=== PATIENT | male | born 1970 | race Caucasian/White ===

== ENCOUNTER 2016-10-19 16:32 | Inpatient (IN) | payer OTHER ==
[2016-10-19 17:33] VITALS: BMI 24.8
--- NOTE | 2016-10-19 19:14 | HP ---
CIWA Score - CIWA Score Nausea/Vomitin Muscle Tremors: 3 Anxiety: 2 Agitation: 3 Paroxysmal Sweats: 2 Orientation: 0-Oriented Tacttile Disturbances: 2-Mild Itch/Numbness/Burn Auditory Disturbances: 2-Mild Harshness/Frighten Visual Disturbances: 2-Mild Sensitivity Headache: 2-Mild CIWA-Ar Total Score: 21 Admission ROS [facility] - HPI Chief Complaint: i need help to stop drinking alcohol,cocaine,heroin abused,on mmtp 50 mgs/day, last medicated today Allergies/Adverse Reactions: Allergies Allergy/AdvReac Type Severity Reaction Status Date / Time No Known Allergies Allergy Verified 10/19/16 19:12 History of Present Illness: this 46 years old male with alcohol,cocaine dependence,heroin abused,mmtp 50 mgs /day,last medicated today, seeking detox,last treatment 2006 [facility] anxiety,depression,insomnia hypertension non compliance nicotine dependence previous admissions before longest period of sobriety 2 years Exam Limitations: No Limitations - Ebola screening Have you traveled outside of the country in the last 21 days: No Have you had contact with anyone from an Ebola affected area: No Have you been sick,other than usual withdrawal symptoms: No Do you have a fever: No - Review of Systems Constitutional: Chills, Diaphoresis, Loss of Appetite, Malaise, Night Sweats, Changes in sleep, Weakness, Unintentional Wgt. Loss EENT: reports: Tearing, Nose Congestion Respiratory: reports: No Symptoms reported Cardiac: reports: No Symptoms Reported GI: reports: Diarrhea, Nausea, Vomiting : reports: No Symptoms Reported Musculoskeletal: reports: Back Pain, Joint Pain, Muscle Pain, Joint Stiffness Integumentary: reports: Dryness Neuro: reports: Headache, Tremors Endocrine: reports: No Symptoms Reported Hematology: reports: No Symptoms Reported Psychiatric: reports: Anxious (insomnia), Depressed Patient History - Patient Medical History Hx Anemia: No Hx Asthma: Yes (on albuterol inhaler) Hx Chronic Obstructive Pulmonary Disease (COPD): No Hx Cancer: No Hx Cardiac Disorders: No Hx Congestive Heart Failure: No Hx Hypertension: Yes (non compliance on hydrochlorothiazide 25 mgs po daily) Hx Hypercholesterolemia: No Hx Pacemaker: No HX Cerebrovascular Accident: No Hx Seizures: Yes (last 09/26) Hx Dementia: No Hx Diabetes: No Hx Gastrointestinal Disorders: No Hx Liver Disease: No Hx Genitourinary Disorders: No Hx Sexually Transmitted Disorders: No Hx Renal Disease (ESRD): No Hx Thyroid Disease: No Hx Human Immunodeficiency Virus (HIV): No (last 09/26 negative) Hx Hepatitis C: No Hx Depression: Yes (anxiety) Hx Suicide Attempt: Yes (jump from secod floor) Hx Bipolar Disorder: No Hx Schizophrenia: No Other Medical History: in somnia,no suiicidal,no homicidal - Patient Surgical History Past Surgical History: No - PPD History Previous Implant?: Yes Documented Results: Negative w/o proof Implanted On Prior R Admission?: No PPD to be Administered?: Yes - Smoking Cessation Smoking history: Current every day smoker Have you smoked in the past 12 months: Yes Aproximately how many cigarettes per day: 40 Cigars Per Day: 0 Hx Chewing Tobacco Use: No Initiated information on smoking cessation: Yes 'Breaking Loose' booklet given: 10/19/16 - Substance & Tx. History Hx Alcohol Use: Yes Hx Substance Use: Yes Substance Use Type: Alcohol, Cocaine, Heroin - Substances Abused Alcohol Route: Oral Frequency: Daily Amount used: 2pints of bacardi/6 packe of 32 ozs of beer Age of first use: 17 Date of Last Use: 10/18/16 Cocaine Route: Inhalation Frequency: 1-2 times per week Amount used: 200$ Age of first use: 11 Date of Last Use: 10/17/16 Heroin Route: Inhalation Frequency: Daily Amount used: 20 bags Age of first use: 15 Date of Last Use: 10/18/16 Family Disease History - Family Disease History Family Disease History: Other: Father (alcohol,), Mother (alcohol, ) Admission Physical Exam [facility] - Vital Signs Vital Signs: Vital Signs - 24 hr 10/19/16 17:16 Temperature 97.2 F L Pulse Rate 81 Respiratory 20 Rate Blood Pressure 126/79 - Physical General Appearance: Yes: Moderate Distress, Tremorous, Irritable, Sweating, Anxious HEENTM: Yes: Normal ENT Inspection, DWAYNE, Pharynx Normal Respiratory: Yes: Lungs Clear, Normal Breath Sounds, No Respiratory Distress Neck: Yes: Supple, Trachea in good position Breast: Yes: Within Normal Limits Cardiology: Yes: Within Normal Limits, Regular Rhythm, Regular Rate, S1, S2 Abdominal: Yes: Within Normal Limits, Normal Bowel Sounds, Non Tender, Flat, Soft Genitourinary: Yes: Within Normal Limits Back: Yes: Normal Inspection, Muscle Spasm Musculoskeletal: Yes: Back pain, Joint Stiffness, Muscle Pain Extremities: Yes: Tremors Neurological: Yes: registered radiologic technologist II-XII NML intact, Fully Oriented, Alert, Motor Strength 5/5 Integumentary: Yes: Dry Lymphatic: Yes: Within Normal Limits - Diagnostic (1) Alcohol dependence with uncomplicated withdrawal Current Visit: Yes Status: Acute (2) Cocaine dependence Current Visit: Yes Status: Acute (3) Heroin dependence Current Visit: Yes Status: Acute (4) Methadone maintenance therapy patient Current Visit: Yes Status: Acute (5) Weight loss Current Visit: Yes Status: Acute (6) Asthma Current Visit: Yes Status: Acute (7) Anxiety and depression Current Visit: Yes Status: Acute (8) Insomnia Current Visit: Yes Status: Acute Cleared for Admission [facility] - Detox or Rehab [facility] Level of Care: Medically Managed Detox Regimen/Protocol: Librium [facility] Breath Alcohol Content Breath Alcohol Content: 0 Urine Drug Screen - Results Drug Screen Negative: No Urine Drug Screen Results: OPI-Opiates, MTD-Methadone
[2016-10-19] MEDS ORDERED: ACETAMINOPHEN 325 MG TABLET (FP) PO PRN (19:38)
[2016-10-19] MEDS ORDERED: MENTHOL/PHENOL 1 EACH UD MM PRN (19:38)
[2016-10-19] MEDS ORDERED: MAGNESIUM HYDROX 2400MG/30ML ORAL SUSPENSION 30 ML CUP PO PRN (19:38)
[2016-10-19] MEDS ORDERED: MAGNESIUM CITRATE 300 ML BOTTLE PO PRN (19:38)
[2016-10-19] MEDS ORDERED: P-EPHED 60MG/TRIPROLIDI 2.5MG TABLET PO PRN (19:38)
[2016-10-19] MEDS ORDERED: NICOTINE POLACRILEX 2 MG GUM BC PRN (19:38)
[2016-10-19] MEDS ORDERED: diphenhydrAMINE HCL 50 MG CAPSULE PO PRN (19:38)
[2016-10-19] MEDS ORDERED: MAG HYDROX/AL HYDROX/SIMETH 30 ML UNIT-DOSE CUP PO PRN (19:38)
[2016-10-19] MEDS ORDERED: chlordiazePOXIDE HCL 25 MG CAPSULE PO PRN (19:38)
[2016-10-19] MEDS ORDERED: LOPERAMIDE HCL 2 MG CAPSULE PO PRN (19:38)
[2016-10-19] MEDS ORDERED: hydrOXYzine PAMOATE 50 MG CAPSULE (FP) PO PRN (19:38)
[2016-10-19] MEDS ORDERED: guaiFENesin/D-METHORPHAN HB 10 ML UNIT-DOSE CUPS PO PRN (19:38)
[2016-10-19] MEDS: chlordiazePOXIDE HCL 25 MG CAPSULE PO SCH (22:28)
[2016-10-19] MEDS: THIAMINE HCL 100 MG TABLET (FP) PO SCH (22:28)
[2016-10-19] MEDS: NICOTINE 21 MG/24 HOURS TOPICAL PATCH TD SCH (22:29)
[2016-10-20] MEDS: chlordiazePOXIDE HCL 25 MG CAPSULE PO SCH ×4 (05:17→22:12)
[2016-10-20] MEDS ORDERED: METHADONE HCL 10 MG TABLET PO ONE (09:50)
[2016-10-20] MEDS ORDERED: METHADONE 40 MG, METHADONE 10 MG PO ONE (10:05)
[2016-10-20 10:06] LABS: MCH 30.1 pg (25.7-33.7); MCHC 32.5 g/dl (32.0-35.9); MEAN CELL VOLUME 92.6 fl (80-96); MEAN PLT VOLUME 10.2 fl (7.5-11.1); PLATELET COUNT 161 K/MM3 (134-434); RDW 14.7 % (11.9-15.9); WHITE BLOOD COUNT 8.7 K/mm3 (4.0-10.0)
[2016-10-20] MEDS ORDERED: METHADONE HCL 10 MG TABLET ONE (10:17)
[2016-10-20] MEDS ORDERED: METHADONE HCL 40 MG DISPERSABLE TABLET ONE (10:17)
[2016-10-20] MEDS: PRENATAL VITAMINS W/ FOLIC ACID TABLET (FP) PO SCH (10:21)
[2016-10-20] MEDS: NICOTINE 21 MG/24 HOURS TOPICAL PATCH TD SCH (10:22)
--- NOTE | 2016-10-20 10:24 | PN ---
S CIWA - CIWA Score Nausea/Vomitin-No Nausea/No Vomiting Muscle Tremors: 4-Moderate,w/Arms Extend Anxiety: 3 Agitation: 4-Moderately Restless Paroxysmal Sweats: 3 Orientation: 0-Oriented Tacttile Disturbances: 0-None Auditory Disturbances: 0-None Visual Disturbances: 0-None Headache: 1-Very Mild CIWA-Ar Total Score: 15 BHS Progress Note (SOAP) Subjective: sweats agitation anxiety interrupted sleep Objective: 10/20/16 10:23 Vital Signs Temperature 97.5 F L 10/20/16 10:21 Pulse Rate 77 10/20/16 10:21 Respiratory Rate 18 10/20/16 10:21 Blood Pressure 136/92 10/20/16 10:21 O2 Sat by Pulse Oximetry (%) Laboratory Tests 10/20/16 10/20/16 07:00 07:00 WBC 8.7 RBC 4.47 Hgb 13.4 Hct 41.4 MCV 92.6 MCH 30.1 MCHC 32.5 RDW 14.7 Plt Count 161 MPV 10.2 Sodium 142 Potassium 4.4 Chloride 109 H labs pending awake/alert ambulating no acute distress Assessment: 10/20/16 10:23 withdrawal sx Plan: continue detox increase fluids labs pending
[2016-10-20 10:31] LABS: ALBUMIN 3.3 g/dl (3.4-5.0); ALK PHOS 71 U/L (45-117); ANION GAP 4 (8-16); BILIRUBIN,TOTAL 0.2 mg/dL (0.2-1.0); CO2 29 mmol/L (21-32); CREATININE 0.9 mg/dL (0.7-1.3); GLUCOSE,RANDOM 94 mg/dL (74-106); SGOT/AST 9 U/L (15-37); SGPT/ALT 17 U/L (12-78); TOT PROT 6.3 g/dl (6.4-8.2)
--- NOTE | 2016-10-20 10:43 | CONSULT ---
[facility] Psychiatric Consult - Data Date of interview: 10/20/16 Admission source: [facility] Identifying data: This is 46 years old male with psychiatric hospitalization history intoxicated with: Heroin,. Alcohol, Cociane and Nicotine Substance Abuse History: - Smoking Cessation. Smoking history: Current every day smoker. Have you smoked in the past 12 months: Yes. Aproximately how many cigarettes per day: 40. Cigars Per Day: 0. Hx Chewing Tobacco Use: No. Initiated information on smoking cessation: Yes. 'Breaking Loose' booklet given : 10/19/16. - Substance & Tx. History. Hx Alcohol Use: Yes. Hx Substance Use : Yes. Substance Use Type: Alcohol, Cocaine, Heroin. - Substances Abused. Alcohol. Route: Oral. Frequency: Daily. Amount used: 2pints of bacardi/6 packe of 32 ozs of beer. Age of first use: 17. Date of Last Use: 10/18/16. * * Cocaine. Route: Inhalation. Frequency: 1-2 times per week. Amount used: 200 $. Age of first use: 11. Date of Last Use: 10/17/16. Heroin. Route: Inhalation. Frequency: Daily. Amount used: 20 bags. Age of first use: 15. Date of Last Use: 10/18/16 Medical History: Asthma, Weight loss hidtory, MMTP 50mg/day Psychiatric History: Patient reports history of anxiety and depression, reports psychiatric admission on about 10 years ago for safety, reports insomnia, reports taking prior to admission: Ambien 10mg po qhs Physical/Sexual Abuse/Trauma History: Denies Additional Comment: Ambien 10mg po qhs prn for insomnia Mental Status Exam - Mental Status Exam Alert and Oriented to: Person Cognitive Function: Fair Patient Appearance: Unkempt Mood: Sad Affect: Flat Patient Behavior: Sedated Speech Pattern: Delayed Voice Loudness: Mildly Soft/Quiet Thought Process: Circumstantial Thought Disorder: Being Controlled Hallucinations: Denies Suicidal Ideation: Denies Homicidal Ideation: Denies Insight/Judgement: Fair Sleep: Difficulty falling asleep Appetite: Weight loss Muscle strength/Tone: Mild Hypotonicity Gait/Station: Shuffling Additional Comments: Ambien 10mg po qhs prn for insomnia Psychiatric Findings - Problem List ([place] 1, 2,3) (1) Alcohol dependence with uncomplicated withdrawal Current Visit: Yes Status: Acute (2) Anxiety and depression Current Visit: Yes Status: Acute (3) Cocaine dependence Current Visit: Yes Status: Acute (4) Heroin dependence Current Visit: Yes Status: Acute (5) Methadone maintenance therapy patient Current Visit: Yes Status: Acute (6) Drug-induced mood disorder Current Visit: Yes Status: Acute - Initial Treatment Plan Initial Treatment Plan: Ambien 10mg po qhs prn for insomnia
--- NOTE | 2016-10-20 15:37 | EKG ---
Test Reason : Blood Pressure : / mmHG Vent. Rate : 052 BPM Atrial Rate : 052 BPM P-R Int : 160 ms QRS Dur : 098 ms QT Int : 416 ms P-R-T Axes : 027 049 041 degrees QTc Int : 386 ms SINUS BRADYCARDIA VOLTAGE CRITERIA FOR LEFT VENTRICULAR HYPERTROPHY ABNORMAL ECG NO PREVIOUS ECGS AVAILABLE Confirmed by ANDRAE OLMOS MD ([id number]) on 10/20/2016 3:37:08 PM Referred By: Confirmed By:ANDRAE OLMOS MD
[2016-10-20] MEDS: IBUPROFEN 400 MG TABLET (FP) PO PRN (22:11)
[2016-10-20] MEDS: THIAMINE HCL 100 MG TABLET (FP) PO SCH (22:12)
[2016-10-20] MEDS: ZOLPIDEM TARTRATE 10 MG TABLET (PARK CARE ONLY) PO PRN (22:12)
[2016-10-21] MEDS ORDERED: METHADONE HCL 40 MG DISPERSABLE TABLET ONE (04:27)
[2016-10-21] MEDS ORDERED: METHADONE HCL 10 MG TABLET ONE (04:28)
[2016-10-21] MEDS ORDERED: METHADONE HCL 40 MG DISPERSABLE TABLET PO SCH (06:00)
[2016-10-21] MEDS: chlordiazePOXIDE HCL 25 MG CAPSULE PO SCH ×3 (06:12→17:44)
[2016-10-21] MEDS: METHADONE 40 MG, METHADONE 10 MG PO SCH (06:12)
--- NOTE | 2016-10-21 09:50 | PN ---
[facility] CIWA - CIWA Score Nausea/Vomitin-No Nausea/No Vomiting Muscle Tremors: 3 Anxiety: 3 Agitation: 3 Paroxysmal Sweats: 3 Orientation: 0-Oriented Tacttile Disturbances: 0-None Auditory Disturbances: 0-None Visual Disturbances: 0-None Headache: 0-None Present CIWA-Ar Total Score: 12 S Progress Note (SOAP) Subjective: sweats interrupted sleep agitation restless Objective: 10/21/16 09:50 Vital Signs Temperature 97.5 F 10/21/16 06:29 Pulse Rate 101 10/21/16 06:29 Respiratory Rate 18 10/21/16 06:29 Blood Pressure 153/87 10/21/16 06:29 O2 Sat by Pulse Oximetry (%) Laboratory Tests 10/20/16 10/20/16 10/20/16 07:00 07:00 07:00 WBC 8.7 RBC 4.47 Hgb 13.4 Hct 41.4 MCV 92.6 MCH 30.1 MCHC 32.5 RDW 14.7 Plt Count 161 MPV 10.2 Sodium 142 Potassium 4.4 Chloride 109 H Carbon Dioxide 29 Anion Gap 4 L BUN 15 Creatinine 0.9 Creat Clearance w eGFR > 60 Random Glucose 94 Calcium 9.0 Total Bilirubin 0.2 AST 9 L ALT 17 Alkaline Phosphatase 71 Total Protein 6.3 L Albumin 3.3 L RPR Titer Nonreactive u/a ordered awake/alert ambulating no acute distress Assessment: 10/21/16 09:51 mild withdrawal sx Plan: continue detox increase fluids f/u ua
[2016-10-21] MEDS: PRENATAL VITAMINS W/ FOLIC ACID TABLET (FP) PO SCH (10:12)
[2016-10-21] MEDS: NICOTINE 21 MG/24 HOURS TOPICAL PATCH TD SCH (10:12)
[2016-10-21 16:10] LABS: URINE APPEARANCE CLEAR; URINE BILIRUBIN NEGATIVE (NEGATIVE); URINE BLOOD NEGATIVE (NEGATIVE); URINE COLOR LTYELLOW; URINE GLUCOSE (UA) NEGATIVE (NEGATIVE); URINE KETONE NEGATIVE (NEGATIVE); URINE LEUK ESTERASE NEGATIVE (NEGATIVE); URINE NITRITE NEGATIVE (NEGATIVE); URINE PROTEIN NEGATIVE (NEGATIVE); URINE UROBILINOGEN NEGATIVE mg/dL (0.2-1.0)
[2016-10-21] MEDS: THIAMINE HCL 100 MG TABLET (FP) PO SCH (22:11)
[2016-10-21] MEDS: ZOLPIDEM TARTRATE 10 MG TABLET (PARK CARE ONLY) PO PRN (22:11)
[2016-10-21] MEDS: chlordiazePOXIDE 5 MG CAPSULE PO SCH (22:11)
[2016-10-22] MEDS ORDERED: METHADONE HCL 10 MG TABLET ONE (04:46)
[2016-10-22] MEDS ORDERED: METHADONE HCL 40 MG DISPERSABLE TABLET ONE (04:46)
[2016-10-22] MEDS: chlordiazePOXIDE 5 MG CAPSULE PO SCH ×3 (05:11→17:48)
[2016-10-22] MEDS: METHADONE 40 MG, METHADONE 10 MG PO SCH (05:12)
[2016-10-22] MEDS: NICOTINE 21 MG/24 HOURS TOPICAL PATCH TD SCH (10:03)
[2016-10-22] MEDS: PRENATAL VITAMINS W/ FOLIC ACID TABLET (FP) PO SCH (10:03)
--- NOTE | 2016-10-22 10:12 | PN ---
[facility] Progress Note (SOAP) Subjective: Sweating,interrupted sleep,restless Objective: 10/22/16 10:11 Vital Signs - 8 hr 10/22/16 10/22/16 10/22/16 03:30 06:00 10:00 Temperature 97.2 F L 97.5 F L Pulse Rate 65 77 Respiratory 18 18 18 Rate Blood Pressure 133/89 145/96 Laboratory Last Values WBC 8.7 K/mm3 (4.0-10.0) 10/20/16 07:00 RBC 4.47 M/mm3 (4.00-5.60) 10/20/16 07:00 Hgb 13.4 GM/dL (11.7-16.9) 10/20/16 07:00 Hct 41.4 % (35.4-49) 10/20/16 07:00 MCV 92.6 fl (80-96) 10/20/16 07:00 MCH 30.1 pg (25.7-33.7) 10/20/16 07:00 MCHC 32.5 g/dl (32.0-35.9) 10/20/16 07:00 RDW 14.7 % (11.9-15.9) 10/20/16 07:00 Plt Count 161 K/MM3 (134-434) 10/20/16 07:00 MPV 10.2 fl (7.5-11.1) 10/20/16 07:00 Sodium 142 mmol/L (136-145) 10/20/16 07:00 Potassium 4.4 mmol/L (3.5-5.1) 10/20/16 07:00 Chloride 109 mmol/L (98-107) H 10/20/16 07:00 Carbon Dioxide 29 mmol/L (21-32) 10/20/16 07:00 Anion Gap 4 (8-16) L 10/20/16 07:00 BUN 15 mg/dL (7-18) 10/20/16 07:00 Creatinine 0.9 mg/dL (0.7-1.3) 10/20/16 07:00 Creat Clearance w eGFR > 60 (>60) 10/20/16 07:00 Random Glucose 94 mg/dL (74-106) 10/20/16 07:00 Calcium 9.0 mg/dL (8.5-10.1) 10/20/16 07:00 Total Bilirubin 0.2 mg/dL (0.2-1.0) 10/20/16 07:00 AST 9 U/L (15-37) L 10/20/16 07:00 ALT 17 U/L (12-78) 10/20/16 07:00 Alkaline Phosphatase 71 U/L (45-117) 10/20/16 07:00 Total Protein 6.3 g/dl (6.4-8.2) L 10/20/16 07:00 Albumin 3.3 g/dl (3.4-5.0) L 10/20/16 07:00 Urine Color Ltyellow 10/21/16 13:05 Urine Appearance Clear 10/21/16 13:05 Urine pH 6.0 (5.0-8.0) 10/21/16 13:05 Ur Specific [place] <= 1.005 (1.005-1.025) 10/21/16 13:05 Urine Protein Negative (NEGATIVE) 10/21/16 13:05 Urine Glucose (UA) Negative (NEGATIVE) 10/21/16 13:05 Urine Ketones Negative (NEGATIVE) 10/21/16 13:05 Urine Blood Negative (NEGATIVE) 10/21/16 13:05 Urine Nitrite Negative (NEGATIVE) 10/21/16 13:05 Urine Bilirubin Negative (NEGATIVE) 10/21/16 13:05 Urine Urobilinogen Negative mg/dL (0.2-1.0) 10/21/16 13:05 Ur Leukocyte Esterase Negative (NEGATIVE) 10/21/16 13:05 RPR Titer Nonreactive (NONREACTIVE) 10/20/16 07:00 labs noted Assessment: 10/22/16 10:11 Withdrawal sx. Plan: Continue detox
[2016-10-22] MEDS: IBUPROFEN 400 MG TABLET (FP) PO PRN (17:54)
[2016-10-22] MEDS: chlordiazePOXIDE HCL 10 MG CAPSULE PO SCH (22:15)
[2016-10-22] MEDS: ZOLPIDEM TARTRATE 10 MG TABLET (PARK CARE ONLY) PO PRN (22:15)
[2016-10-22] MEDS: THIAMINE HCL 100 MG TABLET (FP) PO SCH (22:15)
[2016-10-23] MEDS ORDERED: METHADONE HCL 10 MG TABLET ONE (04:52)
[2016-10-23] MEDS ORDERED: METHADONE HCL 40 MG DISPERSABLE TABLET ONE (04:52)
[2016-10-23] MEDS: chlordiazePOXIDE HCL 10 MG CAPSULE PO SCH ×2 (06:05→12:23)
[2016-10-23] MEDS: METHADONE 40 MG, METHADONE 10 MG PO SCH (06:05)
[2016-10-23 06:43] VITALS: PULSE 71
[2016-10-23] MEDS: PRENATAL VITAMINS W/ FOLIC ACID TABLET (FP) PO SCH (09:35)
--- NOTE | 2016-10-23 09:38 | DS ---
[facility] Detox Discharge Summary Admission Date: 10/19/16 Discharge Date: 10/23/16 - History Present History: Alcohol Dependence, Cocaine Dependence, MMTP Pertinent Past History: Asthma - Physical Exam Results Vital Signs: Vital Signs Temperature 96.1 F L 10/23/16 06:00 Pulse Rate 71 10/23/16 06:00 Respiratory Rate 18 10/23/16 06:00 Blood Pressure 139/86 10/23/16 06:00 O2 Sat by Pulse Oximetry (%) Pertinent Admission Physical Exam Findings: Withdrawal sx. Laboratory Last Values WBC 8.7 K/mm3 (4.0-10.0) 10/20/16 07:00 RBC 4.47 M/mm3 (4.00-5.60) 10/20/16 07:00 Hgb 13.4 GM/dL (11.7-16.9) 10/20/16 07:00 Hct 41.4 % (35.4-49) 10/20/16 07:00 MCV 92.6 fl (80-96) 10/20/16 07:00 MCH 30.1 pg (25.7-33.7) 10/20/16 07:00 MCHC 32.5 g/dl (32.0-35.9) 10/20/16 07:00 RDW 14.7 % (11.9-15.9) 10/20/16 07:00 Plt Count 161 K/MM3 (134-434) 10/20/16 07:00 MPV 10.2 fl (7.5-11.1) 10/20/16 07:00 Sodium 142 mmol/L (136-145) 10/20/16 07:00 Potassium 4.4 mmol/L (3.5-5.1) 10/20/16 07:00 Chloride 109 mmol/L (98-107) H 10/20/16 07:00 Carbon Dioxide 29 mmol/L (21-32) 10/20/16 07:00 Anion Gap 4 (8-16) L 10/20/16 07:00 BUN 15 mg/dL (7-18) 10/20/16 07:00 Creatinine 0.9 mg/dL (0.7-1.3) 10/20/16 07:00 Creat Clearance w eGFR > 60 (>60) 10/20/16 07:00 Random Glucose 94 mg/dL (74-106) 10/20/16 07:00 Calcium 9.0 mg/dL (8.5-10.1) 10/20/16 07:00 Total Bilirubin 0.2 mg/dL (0.2-1.0) 10/20/16 07:00 AST 9 U/L (15-37) L 10/20/16 07:00 ALT 17 U/L (12-78) 10/20/16 07:00 Alkaline Phosphatase 71 U/L (45-117) 10/20/16 07:00 Total Protein 6.3 g/dl (6.4-8.2) L 10/20/16 07:00 Albumin 3.3 g/dl (3.4-5.0) L 10/20/16 07:00 Urine Color Ltyellow 10/21/16 13:05 Urine Appearance Clear 10/21/16 13:05 Urine pH 6.0 (5.0-8.0) 10/21/16 13:05 Ur Specific [place] <= 1.005 (1.005-1.025) 10/21/16 13:05 Urine Protein Negative (NEGATIVE) 10/21/16 13:05 Urine Glucose (UA) Negative (NEGATIVE) 10/21/16 13:05 Urine Ketones Negative (NEGATIVE) 10/21/16 13:05 Urine Blood Negative (NEGATIVE) 10/21/16 13:05 Urine Nitrite Negative (NEGATIVE) 10/21/16 13:05 Urine Bilirubin Negative (NEGATIVE) 10/21/16 13:05 Urine Urobilinogen Negative mg/dL (0.2-1.0) 10/21/16 13:05 Ur Leukocyte Esterase Negative (NEGATIVE) 10/21/16 13:05 RPR Titer Nonreactive (NONREACTIVE) 10/20/16 07:00 labs noted - Treatment Hospital Course: Detox Protocol Followed, Detoxed Safely, Responded well, Discharged Condition Good, Rehab Referral Accepted Patient has Accepted a Rehab Referral to: [facility] - Medication Discharge Medications: Ambulatory Orders Albuterol Sulfate Inhaler - [Ventolin Hfa Inhaler -] 1 puff IH Q6H PRN 10/19/16 Zolpidem Tartrate [Ambien] 10 mg PO HS 10/19/16 - Diagnosis (1) Alcohol dependence with uncomplicated withdrawal Current Visit: Yes Status: Acute (2) Cocaine dependence Current Visit: Yes Status: Acute Qualifiers: Substance use status: uncomplicated Qualified Code(s): F14.20 - Cocaine dependence, uncomplicated (3) Methadone maintenance therapy patient Current Visit: Yes Status: Acute (4) Asthma Current Visit: Yes Status: Acute Qualifiers: Asthma severity: mild intermittent Asthma complication type: uncomplicated Qualified Code(s): J45.20 - Mild intermittent asthma, uncomplicated - AMA Did Patient Leave Against Medical Advice: No
[2016-10-23 10:34] VITALS: BP 149/87; TEMP 97
[2016-10-23] MEDS: NICOTINE 21 MG/24 HOURS TOPICAL PATCH TD SCH (12:25)
== END 2016-10-23 14:01 | disposition other institution (70) | DRG 773 ==
LOC: YASAS 16:32 → Y6N 19:45
PROVIDERS: ADMIT Internal Medicine Addiction Medicine; ATTEND Internal Medicine Addiction Medicine
PROC: HZ2ZZZZ Detoxification Services for Substance Abuse Treatment (ICD-10-PCS; principal; 2016-10-19)
DX: F10.230 Alcohol dependence with withdrawal, uncomplicated (principal); F11.20 Opioid dependence, uncomplicated; F14.20 Cocaine dependence, uncomplicated; F17.210 Nicotine dependence, cigarettes, uncomplicated; F41.8 Other specified anxiety disorders; F19.24 Other psychoactive substance dependence with psychoactive substance-induced mood disorder; J45.20 Mild intermittent asthma, uncomplicated; G47.00 Insomnia, unspecified; I10 Essential (primary) hypertension; Z87.898 Personal history of other specified conditions; Z91.14 Patient's other noncompliance with medication regimen; Z86.69 Personal history of other diseases of the nervous system and sense organs; Z91.5 Personal history of self-harm
CPT/HCPCS: 36415; 80053; 81003; 85027; 86593; 93005; 93010

== ENCOUNTER 2016-10-23 14:18 | Inpatient (IN) | payer OTHER ==
[2016-10-23] MEDS ORDERED: MAGNESIUM HYDROX 2400MG/30ML ORAL SUSPENSION 30 ML CUP PO PRN (15:29)
[2016-10-23] MEDS ORDERED: guaiFENesin/D-METHORPHAN HB 10 ML UNIT-DOSE CUPS PO PRN (15:29)
[2016-10-23] MEDS ORDERED: NICOTINE POLACRILEX 2 MG GUM BUC PRN (15:29)
[2016-10-23] MEDS ORDERED: MENTHOL/PHENOL 1 EACH UD MM PRN (15:29)
[2016-10-23] MEDS ORDERED: LOPERAMIDE HCL 2 MG CAPSULE PO PRN (15:29)
[2016-10-23] MEDS ORDERED: IBUPROFEN 400 MG TABLET (FP) PO PRN (15:29)
[2016-10-23] MEDS ORDERED: MAG HYDROX/AL HYDROX/SIMETH 30 ML UNIT-DOSE CUP PO PRN (15:29)
[2016-10-23] MEDS ORDERED: MAGNESIUM CITRATE 300 ML BOTTLE PO PRN (15:29)
[2016-10-23] MEDS ORDERED: ACETAMINOPHEN 325 MG TABLET (FP) PO PRN (15:29)
[2016-10-23] MEDS ORDERED: P-EPHED 60MG/TRIPROLIDI 2.5MG TABLET PO PRN (15:29)
--- NOTE | 2016-10-23 15:33 | HP ---
[facility] Rehab Assess/Revision - Admission History Admitted to Rehab from: [facility] [place] Date of Admission to Rehab: 10/23/16 - Vital signs Vital Signs: Vital Signs Period Temp Pulse Resp BP Sys/Bobo Pulse Ox Last 24 Hr 98.5 F 81 18 142/44 - Findings Detox History & Physical reviewed: Yes Concur with findings: Yes
[2016-10-23] MEDS: THIAMINE HCL 100 MG TABLET (FP) PO SCH (21:19)
[2016-10-23] MEDS: diphenhydrAMINE HCL 50 MG CAPSULE PO PRN (21:19)
[2016-10-24] MEDS ORDERED: METHADONE HCL 10 MG TABLET ONE (06:00)
[2016-10-24] MEDS ORDERED: METHADONE HCL 10 MG TABLET PO SCH (06:00)
[2016-10-24] MEDS ORDERED: METHADONE HCL 40 MG DISPERSABLE TABLET ONE (06:00)
[2016-10-24] MEDS: METHADONE 40 MG, METHADONE 10 MG PO SCH (06:48)
--- NOTE | 2016-10-24 10:02 | HP ---
Psychiatrist Admission - Data Date of interview: 10/24/16 Admission source: [address] [place] [address] Identifying data: This is the first admisssion to [address] [place] [address] for this 46 yo H male,resides with his and stepson,unemployed, supported by PA. Medical History: Significant for degenerative disk disease. Psychiatric History: patient reports long and extensive psychiatric history started back in his teens.Reports depressed mood,anxiety.patient was dx with Bipolar disorder when he was admitted to inpatient unit while being in [facility].Patient was placed on psychotropic medications including Depakote and Seroquel (was discontinued due to side effects). patient reports no more psychiatric hospitalizations after that.He was under psychiatric care at.Patient is willing to restart Depakote 250 mg po bid. Physical/Sexual Abuse/Trauma History: not willing to discuss at present Vital Signs: Vital Signs - 24 hr 10/23/16 10/24/16 10/24/16 15:29 00:45 03:28 Temperature 98.5 F Pulse Rate 81 Respiratory 18 16 16 Rate Blood Pressure 142/44 10/24/16 07:02 Temperature 97.6 F Pulse Rate 59 L Respiratory 18 Rate Blood Pressure 154/95 Allergies/Adverse Reactions: Allergies Allergy/AdvReac Type Severity Reaction Status Date / Time No Known Allergies Allergy Verified 10/19/16 19:12 Date of last physical exam: 10/19/16 Concur with the findings of this exam: Yes - Substance Abuse/Tx History Hx Alcohol Use: Yes (reports drinking since 7 yo,6 bottles of beer daily) Hx Substance Use: Yes (heroin since 17 yo 1 g daily,cocaine/crack since 36 yo 1 g 6 times a week) Substance Use Type: Alcohol, Cocaine, Heroin Hx Substance Use Treatment: Yes (couple of different treatments) - Admission Criteria Previous failed treatment: Yes Poor recovery environment: Yes Comorbidities: Yes Lacks judgement: Yes Mental Status Exam - Mental Status Exam Alert and Oriented to: Time, Place, Person Cognitive Function: Grossly Intact Patient Appearance: Unkempt Mood: Sad, Anxious, Irritable Affect: Labile Patient Behavior: Cooperative Speech Pattern: Clear Voice Loudness: Normal Thought Process: Goal Oriented Thought Disorder: Not Present Hallucinations: Denies Suicidal Ideation: Denies Homicidal Ideation: Denies Insight/Judgement: Fair Sleep: Fair Appetite: Fair, Weight loss Muscle strength/Tone: Normal Gait/Station: Normal Psychiatric Findings - Problem List ([place] 1, 2,3) (1) Asthma Current Visit: Yes Status: Chronic Qualifiers: Asthma severity: mild intermittent Asthma complication type: uncomplicated Qualified Code(s): J45.20 - Mild intermittent asthma, uncomplicated (2) Cocaine dependence Current Visit: Yes Status: Chronic Qualifiers: Substance use status: uncomplicated Qualified Code(s): F14.20 - Cocaine dependence, uncomplicated (3) Drug-induced mood disorder Current Visit: Yes Status: Chronic (4) Heroin dependence Current Visit: Yes Status: Chronic (5) Methadone maintenance therapy patient Current Visit: Yes Status: Chronic (6) Degenerative disk disease Current Visit: Yes Status: Chronic (7) Alcohol dependence Current Visit: Yes Status: Chronic (8) Bipolar disorder Current Visit: Yes Status: Chronic - Initial Treatment Plan Initial Treatment Plan: Restart Depakote 250 mg po bid,Vistaril 50 mg po prn for anxiety,Belsompa 15 mg po hs prn for insomnia.Will monitor progress.
[2016-10-24] MEDS ORDERED: hydrOXYzine PAMOATE 50 MG CAPSULE (FP) PO PRN (10:12)
[2016-10-24] MEDS: NICOTINE 21 MG/24 HOURS TOPICAL PATCH TD SCH (10:22)
[2016-10-24] MEDS: PRENATAL VITAMINS W/ FOLIC ACID TABLET (FP) PO SCH (10:22)
[2016-10-24] MEDS: DIVALPROEX SODIUM 250 MG TABLET E.C. (FP) PO SCH ×2 (10:28→21:30)
[2016-10-24] MEDS ORDERED: IBUPROFEN 600 MG TABLET (FP) PO PRN (13:29)
[2016-10-24] MEDS: CYCLOBENZAPRINE HCL 10 MG TABLET (FP) PO SCH ×2 (14:24→21:30)
[2016-10-24] MEDS: LIDOCAINE 5% TOPICAL PATCH TP SCH (14:25)
[2016-10-24] MEDS: SUVOREXANT 5 MG TABLET PO PRN (21:30)
[2016-10-24] MEDS: THIAMINE HCL 100 MG TABLET (FP) PO SCH (21:30)
[2016-10-24] MEDS: LIDOCAINE PATCH REMOVAL MC SCH (22:06)
[2016-10-25] MEDS ORDERED: METHADONE HCL 10 MG TABLET ONE (03:42)
[2016-10-25] MEDS ORDERED: METHADONE HCL 40 MG DISPERSABLE TABLET ONE (03:43)
[2016-10-25] MEDS: METHADONE 40 MG, METHADONE 10 MG PO SCH (06:25)
[2016-10-25] MEDS: CYCLOBENZAPRINE HCL 10 MG TABLET (FP) PO SCH ×3 (06:26→21:35)
[2016-10-25] MEDS: DIVALPROEX SODIUM 250 MG TABLET E.C. (FP) PO SCH ×2 (10:18→21:35)
[2016-10-25] MEDS: PRENATAL VITAMINS W/ FOLIC ACID TABLET (FP) PO SCH (10:18)
[2016-10-25] MEDS: NICOTINE 21 MG/24 HOURS TOPICAL PATCH TD SCH (10:18)
[2016-10-25] MEDS: LIDOCAINE 5% TOPICAL PATCH TP SCH (10:19)
[2016-10-25] MEDS: THIAMINE HCL 100 MG TABLET (FP) PO SCH (21:35)
[2016-10-25] MEDS: LIDOCAINE PATCH REMOVAL MC SCH (21:35)
[2016-10-25] MEDS: diphenhydrAMINE HCL 50 MG CAPSULE PO PRN (21:38)
[2016-10-26] MEDS ORDERED: METHADONE HCL 10 MG TABLET ONE (03:18)
[2016-10-26] MEDS ORDERED: METHADONE HCL 40 MG DISPERSABLE TABLET ONE (03:19)
[2016-10-26] MEDS: METHADONE 40 MG, METHADONE 10 MG PO SCH (06:28)
[2016-10-26] MEDS: CYCLOBENZAPRINE HCL 10 MG TABLET (FP) PO SCH ×3 (06:28→21:30)
[2016-10-26] MEDS: PRENATAL VITAMINS W/ FOLIC ACID TABLET (FP) PO SCH (10:07)
[2016-10-26] MEDS: LIDOCAINE 5% TOPICAL PATCH TP SCH (10:08)
[2016-10-26] MEDS: NICOTINE 21 MG/24 HOURS TOPICAL PATCH TD SCH (10:08)
[2016-10-26] MEDS: DIVALPROEX SODIUM 250 MG TABLET E.C. (FP) PO SCH ×2 (10:08→21:30)
[2016-10-26] MEDS: diphenhydrAMINE HCL 50 MG CAPSULE PO PRN (21:31)
[2016-10-26] MEDS: THIAMINE HCL 100 MG TABLET (FP) PO SCH (21:32)
[2016-10-26] MEDS: LIDOCAINE PATCH REMOVAL MC SCH (23:13)
[2016-10-27] MEDS ORDERED: METHADONE HCL 10 MG TABLET ONE (03:15)
[2016-10-27] MEDS ORDERED: METHADONE HCL 40 MG DISPERSABLE TABLET ONE (03:15)
[2016-10-27] MEDS: METHADONE 40 MG, METHADONE 10 MG PO SCH (06:19)
[2016-10-27] MEDS: CYCLOBENZAPRINE HCL 10 MG TABLET (FP) PO SCH ×3 (06:19→21:39)
[2016-10-27] MEDS: PRENATAL VITAMINS W/ FOLIC ACID TABLET (FP) PO SCH (10:10)
[2016-10-27] MEDS: DIVALPROEX SODIUM 250 MG TABLET E.C. (FP) PO SCH ×2 (10:10→21:39)
[2016-10-27] MEDS: NICOTINE 21 MG/24 HOURS TOPICAL PATCH TD SCH (10:10)
[2016-10-27] MEDS: LIDOCAINE 5% TOPICAL PATCH TP SCH (10:11)
[2016-10-27] MEDS: THIAMINE HCL 100 MG TABLET (FP) PO SCH (21:39)
[2016-10-27] MEDS: SUVOREXANT 5 MG TABLET PO PRN (21:39)
[2016-10-27] MEDS: LIDOCAINE PATCH REMOVAL MC SCH (21:40)
[2016-10-28] MEDS ORDERED: METHADONE HCL 10 MG TABLET ONE (03:18)
[2016-10-28] MEDS ORDERED: METHADONE HCL 40 MG DISPERSABLE TABLET ONE (03:19)
[2016-10-28] MEDS: METHADONE 40 MG, METHADONE 10 MG PO SCH (06:21)
[2016-10-28] MEDS: NICOTINE 21 MG/24 HOURS TOPICAL PATCH TD SCH (09:54)
[2016-10-28] MEDS: DIVALPROEX SODIUM 250 MG TABLET E.C. (FP) PO SCH ×2 (09:55→21:26)
[2016-10-28] MEDS: PRENATAL VITAMINS W/ FOLIC ACID TABLET (FP) PO SCH (09:55)
[2016-10-28] MEDS: LIDOCAINE 5% TOPICAL PATCH TP SCH (09:55)
--- NOTE | 2016-10-28 11:51 | PN ---
[facility] Progress Note Note: hypertension history taking hydrochlorotiazide 12.5 mg po daily for 3 years , ordered
[2016-10-28] MEDS: HYDROCHLOROTHIAZIDE 12.5 MG CAPSULE (FP) PO SCH (12:38)
[2016-10-28] MEDS ORDERED: BUPIVACAINE HCL/PF 0.5% (5MG/ML) 10 ML VIAL ONE (16:10)
[2016-10-28] MEDS: LIDOCAINE PATCH REMOVAL MC SCH (21:26)
[2016-10-28] MEDS: THIAMINE HCL 100 MG TABLET (FP) PO SCH (21:26)
[2016-10-28] MEDS: diphenhydrAMINE HCL 50 MG CAPSULE PO PRN (21:26)
[2016-10-29] MEDS ORDERED: METHADONE HCL 40 MG DISPERSABLE TABLET ONE (03:24)
[2016-10-29] MEDS ORDERED: METHADONE HCL 10 MG TABLET ONE (03:24)
[2016-10-29] MEDS: METHADONE 40 MG, METHADONE 10 MG PO SCH (06:41)
[2016-10-29] MEDS: PRENATAL VITAMINS W/ FOLIC ACID TABLET (FP) PO SCH (09:58)
[2016-10-29] MEDS: HYDROCHLOROTHIAZIDE 12.5 MG CAPSULE (FP) PO SCH (09:58)
[2016-10-29] MEDS: DIVALPROEX SODIUM 250 MG TABLET E.C. (FP) PO SCH ×2 (09:58→21:08)
[2016-10-29] MEDS: NICOTINE 21 MG/24 HOURS TOPICAL PATCH TD SCH (09:59)
[2016-10-29] MEDS: LIDOCAINE 5% TOPICAL PATCH TP SCH (09:59)
[2016-10-29] MEDS: THIAMINE HCL 100 MG TABLET (FP) PO SCH (21:08)
[2016-10-29] MEDS: diphenhydrAMINE HCL 50 MG CAPSULE PO PRN (21:08)
[2016-10-29] MEDS: LIDOCAINE PATCH REMOVAL MC SCH (21:08)
[2016-10-30] MEDS ORDERED: METHADONE HCL 40 MG DISPERSABLE TABLET ONE (03:29)
[2016-10-30] MEDS ORDERED: METHADONE HCL 10 MG TABLET ONE (03:29)
[2016-10-30] MEDS: METHADONE 40 MG, METHADONE 10 MG PO SCH (06:34)
[2016-10-30] MEDS: NICOTINE 21 MG/24 HOURS TOPICAL PATCH TD SCH (10:04)
[2016-10-30] MEDS: DIVALPROEX SODIUM 250 MG TABLET E.C. (FP) PO SCH ×2 (10:04→21:46)
[2016-10-30] MEDS: PRENATAL VITAMINS W/ FOLIC ACID TABLET (FP) PO SCH (10:04)
[2016-10-30] MEDS: HYDROCHLOROTHIAZIDE 12.5 MG CAPSULE (FP) PO SCH (10:04)
[2016-10-30] MEDS: LIDOCAINE 5% TOPICAL PATCH TP SCH (10:05)
[2016-10-30] MEDS: THIAMINE HCL 100 MG TABLET (FP) PO SCH (21:46)
[2016-10-30] MEDS: LIDOCAINE PATCH REMOVAL MC SCH (21:47)
[2016-10-30] MEDS: diphenhydrAMINE HCL 50 MG CAPSULE PO PRN (21:47)
[2016-10-31] MEDS ORDERED: METHADONE HCL 40 MG DISPERSABLE TABLET ONE (05:22)
[2016-10-31] MEDS ORDERED: METHADONE HCL 10 MG TABLET ONE (05:22)
[2016-10-31] MEDS: METHADONE 40 MG, METHADONE 10 MG PO SCH (05:51)
[2016-10-31] MEDS: HYDROCHLOROTHIAZIDE 25 MG TABLET (FP) PO SCH (08:19)
[2016-10-31] MEDS: DIVALPROEX SODIUM 250 MG TABLET E.C. (FP) PO SCH ×2 (09:58→21:17)
[2016-10-31] MEDS: PRENATAL VITAMINS W/ FOLIC ACID TABLET (FP) PO SCH (09:58)
[2016-10-31] MEDS: LIDOCAINE 5% TOPICAL PATCH TP SCH (09:58)
[2016-10-31] MEDS: NICOTINE 21 MG/24 HOURS TOPICAL PATCH TD SCH (09:59)
--- NOTE | 2016-10-31 15:00 | PN ---
Psychiatric Progress Note Vital Signs: Vital Signs Period Temp Pulse Resp BP Sys/Bobo Pulse Ox Last 24 Hr 97.8 F 83 17-18 151/101 Date of Session: 10/31/16 Chief Complaint:: progress update HPI: Patient is addressing alcohol, opioid, cocaine dependence comorbid Bipolar d/o. ROS: asthma medically managed. Current Medications: Active Medications Generic Name Dose Route Start Last Admin Trade Name Freq PRN Reason Stop Dose Admin Acetaminophen 650 mg 10/23/16 15:29 Tylenol - PO Q4H PRN FEVER OR PAIN Al Hydroxide/Mg Hydroxide 30 ml 10/23/16 15:29 Mylanta Oral Suspension - PO Q6H PRN DYSPEPSIA Diphenhydramine HCl 50 mg 10/23/16 15:29 10/30/16 21:47 Benadryl - PO 50 mg HSMR1 PRN Administration FOR ITCHING Divalproex Sodium 250 mg 10/24/16 10:15 10/31/16 09:58 Depakote - PO 250 mg BID KIRK Administration Eucalyptus/Menthol/Phenol/Sorbitol 1 each 10/23/16 15:29 Cepastat Lozenge - MM Q4H PRN SORE THROAT Guaifenesin 10 ml 10/23/16 15:29 Robitussin Dm - PO Q6H PRN COUGH Hydrochlorothiazide 50 mg 10/31/16 08:00 10/31/16 08:19 Hctz - PO 50 mg DAILY@0600 KIRK Administration Hydroxyzine Pamoate 50 mg 10/24/16 10:12 Vistaril - PO Q4H PRN ANXIETY Ibuprofen 600 mg 10/24/16 13:29 Motrin - PO Q6H PRN PAIN Lidocaine 1 patch 10/24/16 14:04 10/31/16 09:58 Lidoderm Patch - TP 1 patch DAILY KIRK Administration Loperamide HCl 4 mg 10/23/16 15:29 Imodium - PO Q6H PRN DIARRHEA Magnesium Hydroxide 30 ml 10/23/16 15:29 Milk Of Magnesia - PO DAILY PRN CONSTIPATION Methadone HCl 40 mg/ Methadone 50 mg 11/01/16 06:00 HCl 10 mg PO DAILY@0600 [facility] Miscellaneous 1 each 10/24/16 22:00 10/30/16 21:47 Lidoderm Patch Removal MC 1 each DAILY@2200 [facility] Administration Nicotine 21 mg 10/24/16 10:00 10/31/16 09:59 Nicoderm Patch - TD 21 mg DAILY KIRK Administration Nicotine Polacrilex 2 mg 10/23/16 15:29 Nicorette Gum - BUC Q2H PRN NICOTINE REPLACEMENT RX Multivit/Folic Acid/Iron 1 tab 10/24/16 10:00 10/31/16 09:58 Vitamins (Sjr) - PO 1 tab DAILY KIRK Administration Pseudoephedrine/Triprolidine 1 combo 10/23/16 15:29 Actifed - PO TID PRN NASAL CONGESTION Quetiapine Fumarate 25 mg 10/31/16 22:00 Seroquel - PO HS KIRK Thiamine HCl 100 mg 10/23/16 22:00 10/30/16 21:46 Vitamin B1 - PO 100 mg HS KIRK Administration Medication(s) Change(s): Seroquel 25 mg po hs, Belsomra 10 mg po hs. Current Side Effect: No Lab tests ordered: No Lab tests reviewed: Yes Provider note:: Reviewed the chart met with the patient . D.K admission note appreciated. Patient reports he unable to sleep, having racing thoughts at nights, "I have a lot of family issues" patient inna spoke about issues reated to his problematic relationship, interpersonal issues also discussed. Reviewed his curent medications, patient reported that was on ambien which helsp his to sleep, psychoeducation regarding medications provided, will add Seroquel 25 mg po hs, Belsomra 10 mg r/n, contineu to monitor progress Total face to face time:: 35 Mental Status Exam - Mental Status Exam Alert and Oriented to: Time, Place, Person Cognitive Function: Good Patient Appearance: Well Groomed Mood: Sad, Anxious Affect: Appropriate, Mood Congruent Patient Behavior: Appropriate, Cooperative Speech Pattern: Clear, Appropriate Voice Loudness: Normal Thought Process: Intact, Goal Oriented Thought Disorder: Not Present Hallucinations: Denies Suicidal Ideation: Denies Homicidal Ideation: Denies Insight/Judgement: Fair Sleep: Poorly, Difficulty falling asleep Appetite: Fair Muscle strength/Tone: Normal Gait/Station: Normal Psychiatric Treatment Plan - Problem List (1) Alcohol dependence Current Visit: Yes (2) Asthma Current Visit: Yes Qualifiers: Asthma severity: mild intermittent Asthma complication type: uncomplicated Qualified Code(s): J45.20 - Mild intermittent asthma, uncomplicated (3) Bipolar disorder Current Visit: Yes (4) Cocaine dependence Current Visit: Yes Qualifiers: Substance use status: uncomplicated Qualified Code(s): F14.20 - Cocaine dependence, uncomplicated (5) Degenerative disk disease Current Visit: Yes (6) Heroin dependence Current Visit: Yes (7) Methadone maintenance therapy patient Current Visit: Yes
[2016-10-31] MEDS: LIDOCAINE PATCH REMOVAL MC SCH (21:17)
[2016-10-31] MEDS: QUEtiapine FUMARATE 25 MG TABLET (FP) PO SCH (21:17)
[2016-10-31] MEDS: SUVOREXANT 10 MG TABLET PO SCH (21:18)
[2016-10-31] MEDS: THIAMINE HCL 100 MG TABLET (FP) PO SCH (21:19)
[2016-11-01] MEDS ORDERED: METHADONE HCL 40 MG DISPERSABLE TABLET PO SCH (06:00)
[2016-11-01] MEDS ORDERED: METHADONE HCL 10 MG TABLET ONE (06:27)
[2016-11-01] MEDS ORDERED: METHADONE HCL 40 MG DISPERSABLE TABLET ONE (06:27)
[2016-11-01] MEDS: METHADONE 40 MG, METHADONE 10 MG PO SCH (06:28)
[2016-11-01] MEDS: HYDROCHLOROTHIAZIDE 25 MG TABLET (FP) PO SCH (06:29)
[2016-11-01] MEDS: LIDOCAINE 5% TOPICAL PATCH TP SCH (10:04)
[2016-11-01] MEDS: DIVALPROEX SODIUM 250 MG TABLET E.C. (FP) PO SCH ×2 (10:04→21:24)
[2016-11-01] MEDS: NICOTINE 21 MG/24 HOURS TOPICAL PATCH TD SCH (10:04)
[2016-11-01] MEDS: PRENATAL VITAMINS W/ FOLIC ACID TABLET (FP) PO SCH (10:04)
[2016-11-01] MEDS: THIAMINE HCL 100 MG TABLET (FP) PO SCH (21:24)
[2016-11-01] MEDS: SUVOREXANT 10 MG TABLET PO SCH (21:24)
[2016-11-01] MEDS: QUEtiapine FUMARATE 25 MG TABLET (FP) PO SCH (21:24)
[2016-11-01] MEDS: diphenhydrAMINE HCL 50 MG CAPSULE PO PRN (21:24)
[2016-11-01] MEDS: LIDOCAINE PATCH REMOVAL MC SCH (21:25)
[2016-11-02] MEDS ORDERED: METHADONE HCL 10 MG TABLET ONE (05:18)
[2016-11-02] MEDS ORDERED: METHADONE HCL 40 MG DISPERSABLE TABLET ONE (05:18)
[2016-11-02] MEDS: HYDROCHLOROTHIAZIDE 25 MG TABLET (FP) PO SCH (07:23)
[2016-11-02] MEDS: METHADONE 40 MG, METHADONE 10 MG PO SCH (07:23)
[2016-11-02] MEDS: PRENATAL VITAMINS W/ FOLIC ACID TABLET (FP) PO SCH (10:00)
[2016-11-02] MEDS: NICOTINE 21 MG/24 HOURS TOPICAL PATCH TD SCH (10:00)
[2016-11-02] MEDS: DIVALPROEX SODIUM 250 MG TABLET E.C. (FP) PO SCH ×2 (10:00→21:30)
[2016-11-02] MEDS: LIDOCAINE 5% TOPICAL PATCH TP SCH (10:01)
[2016-11-02] MEDS: LIDOCAINE PATCH REMOVAL MC SCH (21:30)
[2016-11-02] MEDS: QUEtiapine FUMARATE 25 MG TABLET (FP) PO SCH (21:30)
[2016-11-02] MEDS: SUVOREXANT 10 MG TABLET PO SCH (21:31)
[2016-11-02] MEDS: THIAMINE HCL 100 MG TABLET (FP) PO SCH (21:31)
[2016-11-02] MEDS: diphenhydrAMINE HCL 50 MG CAPSULE PO PRN (21:32)
[2016-11-03] MEDS ORDERED: METHADONE HCL 10 MG TABLET ONE (05:12)
[2016-11-03] MEDS ORDERED: METHADONE HCL 40 MG DISPERSABLE TABLET ONE (05:12)
[2016-11-03] MEDS: HYDROCHLOROTHIAZIDE 25 MG TABLET (FP) PO SCH (06:05)
[2016-11-03] MEDS: METHADONE 40 MG, METHADONE 10 MG PO SCH (06:06)
[2016-11-03] MEDS: LIDOCAINE 5% TOPICAL PATCH TP SCH (10:06)
[2016-11-03] MEDS: NICOTINE 21 MG/24 HOURS TOPICAL PATCH TD SCH (10:06)
[2016-11-03] MEDS: PRENATAL VITAMINS W/ FOLIC ACID TABLET (FP) PO SCH (10:06)
[2016-11-03] MEDS: DIVALPROEX SODIUM 250 MG TABLET E.C. (FP) PO SCH ×2 (10:06→21:15)
[2016-11-03] MEDS: QUEtiapine FUMARATE 25 MG TABLET (FP) PO SCH (21:15)
[2016-11-03] MEDS: THIAMINE HCL 100 MG TABLET (FP) PO SCH (21:15)
[2016-11-03] MEDS: LIDOCAINE PATCH REMOVAL MC SCH (21:15)
[2016-11-03] MEDS: SUVOREXANT 10 MG TABLET PO SCH (21:16)
[2016-11-03] MEDS: diphenhydrAMINE HCL 50 MG CAPSULE PO PRN (21:16)
[2016-11-04] MEDS ORDERED: METHADONE HCL 40 MG DISPERSABLE TABLET ONE (03:20)
[2016-11-04] MEDS ORDERED: METHADONE HCL 10 MG TABLET ONE (03:20)
[2016-11-04] MEDS: METHADONE 40 MG, METHADONE 10 MG PO SCH (06:15)
[2016-11-04] MEDS: HYDROCHLOROTHIAZIDE 25 MG TABLET (FP) PO SCH (06:16)
[2016-11-04] MEDS: NICOTINE 21 MG/24 HOURS TOPICAL PATCH TD SCH (09:52)
[2016-11-04] MEDS: LIDOCAINE 5% TOPICAL PATCH TP SCH (09:52)
[2016-11-04] MEDS: PRENATAL VITAMINS W/ FOLIC ACID TABLET (FP) PO SCH (09:53)
[2016-11-04] MEDS: DIVALPROEX SODIUM 250 MG TABLET E.C. (FP) PO SCH ×2 (10:55→21:10)
[2016-11-04] MEDS: SUVOREXANT 10 MG TABLET PO SCH (21:10)
[2016-11-04] MEDS: QUEtiapine FUMARATE 25 MG TABLET (FP) PO SCH (21:10)
[2016-11-04] MEDS: THIAMINE HCL 100 MG TABLET (FP) PO SCH (21:10)
[2016-11-04] MEDS: LIDOCAINE PATCH REMOVAL MC SCH (21:10)
[2016-11-04] MEDS: diphenhydrAMINE HCL 50 MG CAPSULE PO PRN (21:11)
[2016-11-05] MEDS ORDERED: METHADONE HCL 10 MG TABLET ONE (04:08)
[2016-11-05] MEDS ORDERED: METHADONE HCL 40 MG DISPERSABLE TABLET ONE (04:08)
[2016-11-05] MEDS: HYDROCHLOROTHIAZIDE 25 MG TABLET (FP) PO SCH (06:11)
[2016-11-05] MEDS: METHADONE 40 MG, METHADONE 10 MG PO SCH (06:11)
[2016-11-05] MEDS: PRENATAL VITAMINS W/ FOLIC ACID TABLET (FP) PO SCH (09:38)
[2016-11-05] MEDS: DIVALPROEX SODIUM 250 MG TABLET E.C. (FP) PO SCH ×2 (09:38→21:31)
[2016-11-05] MEDS: NICOTINE 21 MG/24 HOURS TOPICAL PATCH TD SCH (09:38)
[2016-11-05] MEDS: LIDOCAINE 5% TOPICAL PATCH TP SCH (09:39)
[2016-11-05] MEDS: QUEtiapine FUMARATE 25 MG TABLET (FP) PO SCH (21:31)
[2016-11-05] MEDS: SUVOREXANT 10 MG TABLET PO SCH (21:32)
[2016-11-05] MEDS: LIDOCAINE PATCH REMOVAL MC SCH (21:32)
[2016-11-05] MEDS: THIAMINE HCL 100 MG TABLET (FP) PO SCH (21:32)
[2016-11-06] MEDS ORDERED: METHADONE HCL 10 MG TABLET ONE (03:52)
[2016-11-06] MEDS ORDERED: METHADONE HCL 40 MG DISPERSABLE TABLET ONE (03:52)
[2016-11-06] MEDS: METHADONE 40 MG, METHADONE 10 MG PO SCH (06:43)
[2016-11-06] MEDS: HYDROCHLOROTHIAZIDE 25 MG TABLET (FP) PO SCH (06:43)
[2016-11-06] MEDS: NICOTINE 21 MG/24 HOURS TOPICAL PATCH TD SCH (09:53)
[2016-11-06] MEDS: DIVALPROEX SODIUM 250 MG TABLET E.C. (FP) PO SCH ×2 (09:53→21:20)
[2016-11-06] MEDS: PRENATAL VITAMINS W/ FOLIC ACID TABLET (FP) PO SCH (09:53)
[2016-11-06] MEDS: LIDOCAINE 5% TOPICAL PATCH TP SCH (09:54)
[2016-11-06] MEDS: QUEtiapine FUMARATE 25 MG TABLET (FP) PO SCH (21:20)
[2016-11-06] MEDS: THIAMINE HCL 100 MG TABLET (FP) PO SCH (21:20)
[2016-11-06] MEDS: SUVOREXANT 10 MG TABLET PO SCH (21:20)
[2016-11-06] MEDS: LIDOCAINE PATCH REMOVAL MC SCH (21:21)
[2016-11-06] MEDS: diphenhydrAMINE HCL 50 MG CAPSULE PO PRN (21:22)
[2016-11-07] MEDS ORDERED: METHADONE HCL 10 MG TABLET ONE (05:15)
[2016-11-07] MEDS ORDERED: METHADONE HCL 40 MG DISPERSABLE TABLET ONE (05:16)
[2016-11-07] MEDS: METHADONE 40 MG, METHADONE 10 MG PO SCH (06:15)
[2016-11-07] MEDS: HYDROCHLOROTHIAZIDE 25 MG TABLET (FP) PO SCH (06:16)
[2016-11-07 07:06] VITALS: BP 132/87; PULSE 70; TEMP 97.7
--- NOTE | 2016-11-07 07:30 | PN ---
Psychiatric Progress Note Vital Signs: Vital Signs Period Temp Pulse Resp BP Sys/Bobo Pulse Ox Last 24 Hr 97.7 F 70 18-18 132/87 Date of Session: 11/07/16 Chief Complaint:: discharge visit HPI: Patient is addressing alcohol, opioid, cocaine dependence comorbid Bipolar d/o. ROS: degenerative disk disease. Current Medications: Active Medications Generic Name Dose Route Start Last Admin Trade Name Freq PRN Reason Stop Dose Admin Acetaminophen 650 mg 10/23/16 15:29 Tylenol - PO Q4H PRN FEVER OR PAIN Al Hydroxide/Mg Hydroxide 30 ml 10/23/16 15:29 Mylanta Oral Suspension - PO Q6H PRN DYSPEPSIA Diphenhydramine HCl 50 mg 10/23/16 15:29 11/06/16 21:22 Benadryl - PO 50 mg HSMR1 PRN Administration FOR ITCHING Divalproex Sodium 250 mg 10/24/16 10:15 11/06/16 21:20 Depakote - PO 250 mg BID [facility] Administration Eucalyptus/Menthol/Phenol/Sorbitol 1 each 10/23/16 15:29 Cepastat Lozenge - MM Q4H PRN SORE THROAT Guaifenesin 10 ml 10/23/16 15:29 Robitussin Dm - PO Q6H PRN COUGH Hydrochlorothiazide 50 mg 10/31/16 08:00 11/07/16 06:16 Hctz - PO 50 mg DAILY@0600 [facility] Administration Hydroxyzine Pamoate 50 mg 10/24/16 10:12 Vistaril - PO Q4H PRN ANXIETY Ibuprofen 600 mg 10/24/16 13:29 Motrin - PO Q6H PRN PAIN Lidocaine 1 patch 10/24/16 14:04 11/06/16 09:54 Lidoderm Patch - TP 1 patch DAILY KIRK Administration Loperamide HCl 4 mg 10/23/16 15:29 Imodium - PO Q6H PRN DIARRHEA Magnesium Hydroxide 30 ml 10/23/16 15:29 Milk Of Magnesia - PO DAILY PRN CONSTIPATION Methadone HCl 40 mg/ Methadone 50 mg 11/01/16 06:00 11/07/16 06:15 HCl 10 mg PO 50 mg DAILY@0600 [facility] Administration Miscellaneous 1 each 10/24/16 22:00 11/06/16 21:21 Lidoderm Patch Removal MC Not Given DAILY@2200 KIRK Nicotine 21 mg 10/24/16 10:00 11/06/16 09:53 Nicoderm Patch - TD 21 mg DAILY KIRK Administration Nicotine Polacrilex 2 mg 10/23/16 15:29 Nicorette Gum - BUC Q2H PRN NICOTINE REPLACEMENT RX Multivit/Folic Acid/Iron 1 tab 10/24/16 10:00 11/06/16 09:53 Vitamins (Sjr) - PO 1 tab DAILY KIRK Administration Pseudoephedrine/Triprolidine 1 combo 10/23/16 15:29 Actifed - PO TID PRN NASAL CONGESTION Quetiapine Fumarate 25 mg 10/31/16 22:00 11/06/16 21:20 Seroquel - PO 25 mg HS KIRK Administration Thiamine HCl 100 mg 10/23/16 22:00 11/06/16 21:20 Vitamin B1 - PO 100 mg HS KIRK Administration Current Side Effect: No Lab tests ordered: No Lab tests reviewed: Yes Provider note:: Patient has completed today treatment and met his goals will continue to address his issues at [facility] outpatient treatment program. He gained insights into his addiction and motivated to continue maintain abstinence and to follow to every aspects of his aftercare plans. Patient reports that his current medications effective, he feels better, hopeful and energetic, he reports no side-effects from his current medications, scripts provided for 30 days supply. He will attends a day program at [facility] where he gets his methadone and f/u with a psychiatrist. Patient was encouraged to utilze all supports available to prevent relapses.MSE completed. Patient is stable for discharge today. Total face to face time:: 35 Mental Status Exam - Mental Status Exam Alert and Oriented to: Time, Place, Person Cognitive Function: Good Patient Appearance: Well Groomed Mood: Hopeful Affect: Appropriate, Mood Congruent Patient Behavior: Appropriate, Cooperative Speech Pattern: Clear, Appropriate Voice Loudness: Normal Thought Process: Intact, Goal Oriented Thought Disorder: Not Present Hallucinations: Denies Suicidal Ideation: Denies Homicidal Ideation: Denies Insight/Judgement: Fair Sleep: Fair Appetite: Good Muscle strength/Tone: Normal Gait/Station: Normal Psychiatric Treatment Plan - Problem List (1) Alcohol dependence Current Visit: Yes (2) Asthma Current Visit: Yes Qualifiers: Asthma severity: mild intermittent Asthma complication type: uncomplicated Qualified Code(s): J45.20 - Mild intermittent asthma, uncomplicated (3) Bipolar disorder Current Visit: Yes (4) Cocaine dependence Current Visit: Yes Qualifiers: Substance use status: uncomplicated Qualified Code(s): F14.20 - Cocaine dependence, uncomplicated (5) Degenerative disk disease Current Visit: Yes (6) Heroin dependence Current Visit: Yes (7) Methadone maintenance therapy patient Current Visit: Yes
[2016-11-07] MEDS: DIVALPROEX SODIUM 250 MG TABLET E.C. (FP) PO SCH (10:07)
[2016-11-07] MEDS: PRENATAL VITAMINS W/ FOLIC ACID TABLET (FP) PO SCH (10:07)
[2016-11-07] MEDS: LIDOCAINE 5% TOPICAL PATCH TP SCH (10:08)
[2016-11-07] MEDS: NICOTINE 21 MG/24 HOURS TOPICAL PATCH TD SCH (10:08)
== END 2016-11-07 10:15 | disposition home or self-care (01) | DRG 772 ==
LOC: YASAS 14:18 → Y5N 14:19
PROVIDERS: ADMIT Psychiatry & Neurology Psychiatry; ATTEND Psychiatry & Neurology Psychiatry
PROC: HZ42ZZZ Group Counseling for Substance Abuse Treatment, Cognitive-Behavioral (ICD-10-PCS; principal; 2016-10-23)
DX: F11.20 Opioid dependence, uncomplicated (principal); F10.20 Alcohol dependence, uncomplicated; F14.20 Cocaine dependence, uncomplicated; F31.9 Bipolar disorder, unspecified; J45.20 Mild intermittent asthma, uncomplicated; I10 Essential (primary) hypertension